=== PATIENT | female | born 1970 | race Caucasian/White ===

== ENCOUNTER → 2017-03-09 | Outpatient (CLI) | payer BC ==
[~2017-03-09] MED LIST: ESTRADIOL0.5 MG; LEVAQUIN PO; NO HOME MED; PHENERGAN W/CO120 ML; SYNTHROID; VOLTAREN75 MG PO; ZOCOR PO
[2017-03-09 09:21] LABS: CHOLESTEROL 248 mg/dL (0-200); HDL CHOLESTEROL 39 mg/dL (35-95); LDL/HDL RATIO 4 RATIO (0-4); TRIGLYCERIDES 287 mg/dL (10-160)
[2017-03-09 09:24] LABS: LDL CHOLESTEROL 152 mg/dL (-130)
[2017-03-09 09:37] LABS: THYROID STIMULATING HORMONE 0.39 uIU/ml (0.34-5.60)
[2017-03-09 11:45] LABS: FREE T3 2.9 pg/mL (2.5-3.9)
[2017-03-09 11:47] LABS: FREE THYROXIN (T4) 0.93 ng/dL (0.58-1.64)
[2017-03-12 18:46] LABS: TESTOSTERONE FREE (PNL) 2.6 pg/mL (0.1-6.4)
== END | disposition home or self-care (01) ==
LOC: SLAB 08:03
PROVIDERS: Internal Medicine
DX: E03.9 Hypothyroidism, unspecified (principal)
CPT/HCPCS: 36415; 80061; 84402; 84403; 84439; 84443; 84481